=== PATIENT | female | born 1960 | race Hispanic/Latino ===

== ENCOUNTER 2019-02-05 09:09 | Emergency (ER) | payer BC, OTHER ==
[2019-02-05] MEDS ORDERED: METHYLPREDNISOLONE SOD SUCC 125MG/2ML VIAL ONE (10:27)
[2019-02-05] MEDS ORDERED: IPRATROPIUM/ALBUTEROL SULFATE 3 ML SOLUTION IH ONE (10:34)
[2019-02-05 10:45] LABS: BASOPHILS % (AUTO) 1.8 % (0.0-5.0); HEMATOCRIT 44.4 % (36-48); LYMPHOCYTES % (AUTO) 27.8 % (21.0-51.0); MEAN CORPUSCULAR HEMOGLOBIN 29.5 pg (27.0-33.0); MEAN CORPUSCULAR VOLUME 89.3 fL (79-99); MONOCYTES % (AUTO) 5.7 % (3.0-13.0); NEUTROPHILS % (AUTO) 59.7 % (40.0-77.0); PLATELET COUNT (AUTO) 286 K/uL (130-400); RED BLOOD CELL COUNT(AUTO) 4.98 MIL/uL (4.00-5.50); RED CELL DISTRIBUTION WIDTH 13.4 % (11.0-15.5); WHITE BLOOD COUNT (AUTO) 9.1 K/uL (4.8-10.8)
[2019-02-05 10:55] LABS: CREATININE 0.7 mg/dL (0.5-1.5)
[2019-02-05 11:00] LABS: ALBUMIN 3.7 g/dL (3.5-5.0); BILIRUBIN,TOTAL 0.4 mg/dL (0.2-1.0); TOTAL PROTEIN, SERUM 7.5 g/dL (6.0-8.3)
== END 2019-02-05 11:42 | disposition home or self-care (01) ==
LOC: EDH 09:09
DX: J45.41 Moderate persistent asthma with (acute) exacerbation (principal)
CPT/HCPCS: 36415; 71046; 80053; 82550; 84484; 85025; 87804 ×2; 93005; 94640; 96374; 99285; J2930

== ENCOUNTER 2022-12-15 08:54 | Emergency (ER) | payer BC ==
[~2022-12-15] VITALS: Ht 154.9 cm; Wt 77.1 kg
[2022-12-15 08:59] VITALS: BP 138/78
[2022-12-15] MEDS ORDERED: IBUP-2070 PO (11:43)
[2022-12-15] MEDS ORDERED: IBUPROFEN 600 MG TABLET PO ONE (12:00)
== END 2022-12-15 12:05 | disposition home or self-care (01) ==
LOC: EDH 08:54
DX: M25.572 Pain in left ankle and joints of left foot (principal); Z88.8 Allergy status to other drugs, medicaments and biological substances; J45.909 Unspecified asthma, uncomplicated; Z90.710 Acquired absence of both cervix and uterus
CPT/HCPCS: 73600

== ENCOUNTER 2025-10-25 09:23 | Emergency (ER) | payer BC ==
[~2025-10-25] VITALS: Ht 154.9 cm; Wt 78.9 kg
--- NOTE | 2025-10-25 09:37 | ERN ---
General Chief Complaint: Cough Stated Complaint: CONGESTED COUGH Time Seen by MD: 09:27 Source: patient History of Present Illness Initial Comments Patient is a 65-year-old female coming in complaining of a cough. Per patient this has been ongoing for two weeks since she states he is getting worse. She is here for further evaluation. 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 HEAD/FACE: No signs of trauma. EENT: No eye pain, no blurred vision, no tearing, no double vision, no ear pain, no ear discharge, no nose pain, no nasal congestion, no throat pain, no throat swelling, no mouth pain. RESPIRATORY: cough, no orthopnea, no SOB, no stridor, no wheezing. CARDIOVASCULAR: chest pain, no edema, no palpitations, no syncope. GASTROINTESTINAL/ABDOMINAL: No abdominal pain, no constipation, no diarrhea, no nausea, no vomiting. GENITOURINARY: No abnormal discharge, no dysuria, no frequent urination, no hematuria. No complaints of pain in the genitals. MUSCULOSKELETAL: No back pain, no gout, no joint pain, no joint swelling, no muscle pain, no muscle stiffness, no neck pain. INTEGUMENTARY: No change in color, no change in hair/nails, no dryness, no lesion, no lumps, no rash. NEUROLOGICAL/PSYCH: No anxiety, not depressed, no emotional problem, no headache, no numbness, no pre-existing deficit, no history of seizures, no tremors, no weakness. HEMATOLOGIC/LYMPHATIC: Not anemic, no history of blood clots, no apparent bleeding, no bruising, glands not swollen. All Systems Negative, Except as Noted. Physical Exam Physical Exam Dictation VITAL SIGNS: Reviewed. GENERAL APPEARANCE: Alert, oriented x3, no acute distress, obese. HEAD AND FACE: Non-traumatic. EYES: PERRL, pink conjunctivas, eyelid no trauma, anterior chamber clear. EARS: Pinnas intact and no signs of trauma or erythema. Ear canals clear and no discharge. TMs erythema. NOSE: No discharge, no bleeding. Nasal turbinate swelling bilateral OROPHARYNX: Mouth normal, teeth no caries, tongue pink. Pharynx clear, no erythema. Tonsils no exudates, no abscesses noted. Mucous membrane moist. NECK: Supple, non-tender, no thyromegaly, no masses, no JVD, no bruits. BREAST: Deferred. CHEST: No tenderness, no crepitus, no paradoxical movement, no retractions. LUNGS: Clear, well-ventilated, symmetric, no rales, no wheezing, no rhonchi, no stridor, good breath sounds bilaterally. HEART: Regular rate, regular rhythm, no murmur, no gallops. VASCULAR: No peripheral edema. ABDOMEN: Soft, positive bowel sounds, nondistended, no guarding, nontender, no rebound, no masses no hepatomegaly, no splenomegaly, no Hughes's sign, no hernias. RECTAL: Deferred. GENITAL: Deferred. NEUROLOGICAL: Normal speech, gross motor function intact, gross sensory function intact. MUSCULOSKELETAL: Neck nontender, full range of motion, back nontender, full range of motion. EXTREMITIES: Nontender, full range of motion. SKIN: Color pink, dry, no turgor, no rash, no lacerations, no abrasions, no contusions. LYMPHATICS: Deferred. Results Laboratory and Microbiology Lab and Micro Result Laboratory Tests Test 10/25/25 09:42 White Blood Count 10.9 K/uL (4.8-10.8) H Red Blood Count 4.80 MIL/uL (4.00-5.50) Hemoglobin 13.8 g/dL (12.0-16.0) Hematocrit 43.7 % (36-48) Mean Corpuscular Volume 91.0 fL (79-99) Mean Corpuscular Hemoglobin 28.8 pg (27.0-33.0) Mean Corpuscular Hemoglobin Concent 31.6 g/dL (32.0-36.0) L Red Cell Distribution Width 12.3 % (11.0-15.5) Platelet Count 329 K/uL (130-400) Mean Platelet Volume 9.1 fL (7.5-10.5) Immature Granulocyte % (Auto) 0.4 % (0-1) Neutrophils (%) (Auto) 62.3 % (40.0-77.0) Lymphocytes (%) (Auto) 25.7 % (21.0-51.0) Monocytes (%) (Auto) 7.1 % (3.0-13.0) Eosinophils (%) (Auto) 3.7 % (0.0-8.0) Basophils (%) (Auto) 0.8 % (0.0-5.0) Neutrophils # (Auto) 6.8 K/uL (1.8-7.7) Lymphocytes # (Auto) 2.8 K/uL (1.0-4.8) Monocytes # (Auto) 0.8 K/uL (0.1-1.0) Eosinophils # (Auto) 0.40 K/uL (0.00-0.70) Basophils # (Auto) 0.09 K/uL (0.00-0.20) Absolute Immature Granulocyte (auto 0.04 K/uL (0-1) Nucleated Red Blood Cells 0.0 % (0.0-0.19) Sodium Level 138 mmol/L (136-145) Potassium Level 3.9 mmol/L (3.5-5.1) Chloride Level 102 mmol/L (101-111) Carbon Dioxide Level 31 mmol/L (21-32) Blood Urea Nitrogen 16 mg/dL (7-18) Creatinine 0.8 mg/dL (0.5-1.0) Glomerular Filtration Rate Calc 82 mL/min (>90) Random Glucose 84 mg/dL (70-105) Total Calcium 8.9 mg/dL (8.5-10.1) Troponin I High Sensitivity 6 ng/L (4-50) Labs Reviewed?: Yes EKG/XRAY/US/CT/MRI EKG Comment 10/25/2025 time 9:34 a.m. Ventricular rate 56 Sinus rhythm [place] [address] wave elevation or depression X-RAY Comment [place] [address] [place] [address] IMAGING REPORT Signed PATIENT: GUILLAUME VO MR#: [id number] : 1960 SEX: F AGE: 65 LOCATION: [facility] ORDER 8 STATUS: REG ER REPORT#: [id number] SERVICE 6 REASON: cough ORDERING PHYSICIAN: SPEEDY BRADLEY MD PROCEDURE: CXR1VW - CHEST 1VW EXAM: CR Chest, 1 View. CLINICAL HISTORY: cough COMPARISON: None provided. FINDINGS: LUNGS: The lungs show no infiltrate or other acute finding. PLEURAL SPACES: No evidence of pleural effusion or pneumothorax. MEDIASTINUM: Cardiac size and mediastinal contours within normal limits. BONES: No acute osseous abnormality. IMPRESSION: No acute cardiopulmonary pathology is evident. /[place] DICTATED BY: SOILA STRICKLAND DO DATE: 10/25/251120 ELECTRONICALLY SIGNED BY: SOILA STRICKLAND DO DATE: 10/25/251120 MDM MDM: Differential diagnosis: URI, sinusitis, Rationale: Tests considered and ordered secondary to shared decision making include: Previous outside records reviewed: Old ER visits. Risk of complication and/or morbidity or mortality of patient management: None Medications-Per medication reconciliation Need for hospitalization: Patient does not meet criteria for hospitalization. Need for emergency major/minor surgery: No Patient is a 65-year-old female coming in complaining of a cough. On physical exam bilateral tympanic membrane erythema, nasal turbinate swelling bilateral, posterior oropharyngeal drainage. Patient will be discharged in stable condition with a diagnosis of sinusitis. Medication was given for symptomatic relief. ED Course Orders Procedure Category Date Status Time Cbc With Differential LAB 10/25/25 In Process 09: Chest 1vw RAD 10/25/25 Resulted : 12 Lead Ekg Tracing- EKG 10/25/25 Logged Technical : Troponin I High LAB 10/25/25 Complete Sensitivity 09: Basic Metabolic Panel LAB 10/25/25 Complete 09: B-Type Natriuretic LAB 10/25/25 In Process Peptide 09: Dexamethasone 4mg/Ml PHA 10/25/25 In Process 1ml Vial (Dexametha 11:00 Current Medications Medications (Trade) Dose Ordered Sig/Luis Manuel Route PRN Reason Start Time Stop Time Status Last Admin Dose Admin Dexamethasone Sodium Phosphate (dexaMETHasone 4MG/ML 1ML VIAL) 4 mg ONCE ONCE IM 10/25/25 11:00 10/25/25 11:01 Vital Signs Date Time Temp Pulse Resp B/P (MAP) Pulse Ox O2 Delivery O2 Flow Rate FiO2 10/25/25 09:26 98.2 69 18 160/83 99 Room Air 0 DX & DISP Disposition: Discharge Departure Impression: Primary Impression: ACUTE MAXILLARY SINUSITIS, UNSPECIFIED Condition: Stable Scripts Loratadine (Loratadine) 10 Mg Tablet 1 TAB PO DAILY for allergy symptoms for 30 Days, #30 TAB 0 Refills Prov: SPEEDY BRADLEY MD 10/25/25 Fluticasone Propionate (Flonase Nasal Fishtail) 50 Mcg/Actuation Fishtail 2 SPRAY NS DAILY, #16 GM 0 Refills Prov: SPEEDY BRADLEY MD 10/25/25 Amoxicillin/Potassium Clav (Amox Tr-K Clv 875-125 mg Tab) 875 Mg-125 Mg Tablet 1 TAB PO BID for 10 Days, #20 TAB 0 Refills Prov: SPEEDY BRADLEY MD 10/25/25 Additional Instructions: FOLLOW-UP WITH PRIMARY CARE PROVIDER IN 1 TO 2 DAYS. TAKE MEDICATIONS DIRECTED HERE IN THE EMERGENCY ROOM. OKAY TO CONTINUE HOME MEDICATIONS UNLESS OTHERWISE DISCUSSED DURING YOUR VISIT IN THE EMERGENCY ROOM TODAY. RETURN TO YOUR NEAREST EMERGENCY ROOM IF SYMPTOMS WORSEN OR IF THERE IS NO IMPROVEMENT. CALL 911 IF YOU NEED IMMEDIATE ASSISTANCE. TAKE TYLENOL [id number] NEEDED AND IF NO CONTRAINDICATIONS ARE PRESENT. INCREASE ORAL HYDRATION. A WOUND CULTURE OR URINE CULTURE WAS ORDERED HERE IN THE EMERGENCY ROOM DEPARTMENT PLEASE FOLLOW-UP WITH PRIMARY CARE PROVIDER AND ADVISE THEM TO GET REPORTS FROM OUR FACILITY. IF YOU HAD ANY JAI WRAP/SPLINTS THAT WERE APPLIED HERE, PLEASE DO NOT REMOVE THEM UNTIL YOU SEE YOUR PRIMARY CARE OR SPECIALTY. Referrals: Referrals: TENZIN LEAL DO (PCP) Time of Disposition: 10:44 SPEEDY BRADLEY MD Oct 25, 2025 09:37
[2025-10-25 10:07] LABS: IMMATURE GRANULOCYTE ABSOLUTE 0.04 K/uL (0-1); NUCLEATED RED BLOOD CELLS 0.0 % (0.0-0.19); PLATELET COUNT (AUTO) 329 K/uL (130-400); RED BLOOD CELL COUNT(AUTO) 4.80 MIL/uL (4.00-5.50); RED CELL DISTRIBUTION WIDTH 12.3 % (11.0-15.5); WHITE BLOOD COUNT (AUTO) 10.9 K/uL (4.8-10.8)
[2025-10-25 10:14] LABS: CREATININE 0.8 mg/dL (0.5-1.0); GLOMERULAR FILTR. RATE CALC 82.0 mL/min (>90); GLUCOSE,RANDOM 84.0 mg/dL (70-105); SODIUM SERUM 138.0 mmol/L (136-145); UREA NITROGEN, BLOOD 16.0 mg/dL (7-18)
--- NOTE | 2025-10-25 10:22 | HMCIMG ---
EXAM: CR Chest, 1 View. CLINICAL HISTORY: cough COMPARISON: None provided. FINDINGS: LUNGS: The lungs show no infiltrate or other acute finding. PLEURAL SPACES: No evidence of pleural effusion or pneumothorax. MEDIASTINUM: Cardiac size and mediastinal contours within normal limits. BONES: No acute osseous abnormality. IMPRESSION: No acute cardiopulmonary pathology is evident. /[place]
[2025-10-25] MEDS: ALBUTEROL 0.083% 2.5 MG/3 ML INH IH ONE (11:15)
[2025-10-25 11:17] VITALS: BP 151/73; PULSE 53; RESP 14; TEMP 98.2; O2SAT 98
--- NOTE | 2025-10-31 06:35 | EKG ---
[facility] Test Date: 2025-10-25 Test Time: 09:34:25 Pat Name: GUILLAUME VO Department: ED Room: Gender: F Director Nursing Service: [id number] : 1960 Requested By: SPEEDY BRADLEY Order Number: [id number] Reading MD: Harsha Guerrero Measurements Intervals [place] Rate: 56 P: 54 [place]: 137 QRS: 58 QRSD: 92 T: 35 QT: 430 QTc: 417 Interpretive Statements Sinus rhythm Compared to ECG 02/05/2019 09:21:07 Sinus bradycardia no longer present Electronically Signed On 10-31-2025 09:17:05 [employer] by Harsha Guerrero Please click the below link to view image of tracing.
== END 2025-10-25 11:43 | disposition home or self-care (01) ==
LOC: EDH 09:23
DX: J01.00 Acute maxillary sinusitis, unspecified (principal); J45.909 Unspecified asthma, uncomplicated; Z90.710 Acquired absence of both cervix and uterus
CPT/HCPCS: 99284; 71045; 84484; 80048; 83880; 85025; 36415; 96372; 93005; 94640; J1100